=== PATIENT | female | born 1955 | race Caucasian/White ===

== ENCOUNTER 2017-05-26 11:00 | Outpatient (RCR) | payer OTHER ==
[2017-03-29 11:39] VITALS: BP 105/56; PULSE 78; TEMP 97.8
[2017-03-30 11:19] VITALS: BP 105/49; PULSE 74; TEMP 98.1
[2017-03-31 10:08] VITALS: BP 121/49; PULSE 88; TEMP 98
[2017-04-03 11:29] VITALS: BP 96/44; PULSE 123; TEMP 97.4
[2017-04-10 10:59] VITALS: BP 125/79; PULSE 120; TEMP 97.7
[2017-04-17 11:09] VITALS: BP 104/75; PULSE 122; TEMP 97.7
[2017-04-21 10:42] VITALS: BP 117/93; PULSE 94; TEMP 97.6
[2017-04-21 10:57] LABS: ADD PATHOLOGY DIFF REVIEW NO
[2017-04-21 11:02] LABS: HEMATOCRIT 30.8 % (37.0-47.0); HEMOGLOBIN 10.2 g/dl (12.5-16.0); MEAN CELL VOLUME 91 fl (80.0-100.0); MEAN CORPUSCULAR HEMOGLOBIN 30 pg (27.0-31.0); MEAN CORPUSCULAR HGB CONC 33 g/dl (33.0-37.0); MEAN PLATELET VOLUME 10.7 fl (7.4-10.4); PLATELET COUNT 146 K/mm3 (130-400); RED BLOOD COUNT 3.38 M/mm3 (4.10-5.30); REDCELL DISTRIBUTION WIDTH-CV 12.6 % (11.5-14.5)
[2017-04-21 11:11] LABS: ADJUSTED CALCIUM 9.3 mg/dL (8.4-10.2); ALBUMIN 3.6 gm/dL (3.5-5.0); BILIRUBIN,TOTAL 0.3 mg/dL (0.0-1.0); CREATININE, serum 0.45 mg/dL (0.52-1.25); POTASSIUM 3.8 mmol/L (3.4-5.0); TOTAL PROTEIN 6.5 gm/dL (6.4-8.2)
[2017-04-21 12:06] LABS: BAND 9 % (0-10); EOSINOPHIL 1 % (0-4); METAMYELOCYTE 2 % (0-0); NEUTROPHILS 61 % (42.0-75.2); TOTAL CELLS COUNTED 100
[2017-04-21 12:07] LABS: PLATELET ESTIMATE NORMAL (NORMAL)
[2017-04-28 11:09] VITALS: BP 108/54; PULSE 101; TEMP 97.8
[2017-04-28 11:59] LABS: ADD PATHOLOGY DIFF REVIEW NO
[2017-04-28 12:02] LABS: MEAN CELL VOLUME 93 fl (80.0-100.0); MEAN CORPUSCULAR HGB CONC 33 g/dl (33.0-37.0); MEAN PLATELET VOLUME 9.5 fl (7.4-10.4); PLATELET COUNT 167 K/mm3 (130-400); RED BLOOD COUNT 3.56 M/mm3 (4.10-5.30); REDCELL DISTRIBUTION WIDTH-CV 13.2 % (11.5-14.5); WHITE BLOOD COUNT 9.8 K/mm3 (4.8-10.8)
[2017-04-28 12:03] LABS: HEMATOCRIT 33.1 % (37.0-47.0); HEMOGLOBIN 10.8 g/dl (12.5-16.0); MEAN CORPUSCULAR HEMOGLOBIN 30 pg (27.0-31.0)
[2017-04-28 12:21] LABS: ADJUSTED CALCIUM 9.3 mg/dL (8.4-10.2); ALBUMIN 3.7 gm/dL (3.5-5.0); BILIRUBIN,TOTAL 0.2 mg/dL (0.0-1.0); CALCIUM 9.1 mg/dL (8.4-10.2); CREATININE, serum 0.51 mg/dL (0.52-1.25); POTASSIUM 3.8 mmol/L (3.4-5.0); TOTAL PROTEIN 6.6 gm/dL (6.4-8.2)
[2017-04-28 13:42] LABS: BAND 23 % (0-10); BASOPHIL 1 % (0-2); NEUTROPHILS 55 % (42.0-75.2); PLATELET ESTIMATE NORMAL (NORMAL); TOTAL CELLS COUNTED 100
[2017-04-28 13:43] LABS: OVALOCYTES 1+
[2017-05-05 11:28] LABS: ADD PATHOLOGY DIFF REVIEW NO
[2017-05-05 11:36] LABS: MEAN CELL VOLUME 94 fl (80.0-100.0); MEAN CORPUSCULAR HGB CONC 32 g/dl (33.0-37.0); PLATELET COUNT 535 K/mm3 (130-400); RED BLOOD COUNT 3.05 M/mm3 (4.10-5.30); REDCELL DISTRIBUTION WIDTH-CV 14.6 % (11.5-14.5); WHITE BLOOD COUNT 5.9 K/mm3 (4.8-10.8)
[2017-05-05 11:37] LABS: HEMATOCRIT 28.6 % (37.0-47.0); HEMOGLOBIN 9.2 g/dl (12.5-16.0); MEAN CORPUSCULAR HEMOGLOBIN 30 pg (27.0-31.0)
[2017-05-05 11:50] LABS: BAND 3 % (0-10); NEUTROPHILS 61 % (42.0-75.2); PLATELET ESTIMATE INCREASED (NORMAL); TOTAL CELLS COUNTED 100
[2017-05-05 12:04] VITALS: BP 103/40; PULSE 20; TEMP 97.9
[2017-05-12 11:05] LABS: MEAN CELL VOLUME 93 fl (80.0-100.0); MEAN CORPUSCULAR HGB CONC 33 g/dl (33.0-37.0); MEAN PLATELET VOLUME 10.1 fl (7.4-10.4); PLATELET COUNT 331 K/mm3 (130-400); RED BLOOD COUNT 2.84 M/mm3 (4.10-5.30); REDCELL DISTRIBUTION WIDTH-CV 14.2 % (11.5-14.5)
[2017-05-12 11:08] LABS: HEMATOCRIT 26.5 % (37.0-47.0); HEMOGLOBIN 8.7 g/dl (12.5-16.0); MEAN CORPUSCULAR HEMOGLOBIN 31 pg (27.0-31.0); WHITE BLOOD COUNT 20.2 K/mm3 (4.8-10.8)
[2017-05-12 11:09] VITALS: BP 107/40; PULSE 93; TEMP 98.1
[2017-05-12 11:44] LABS: BAND 64 % (0-10); METAMYELOCYTE 1 % (0-0); MYELOCYTE 1 % (0-0); NEUTROPHILS 24 % (42.0-75.2); POLYCHROMASIA 1+; TOTAL CELLS COUNTED 100
[2017-05-12 11:54] LABS: PLATELET ESTIMATE NORMAL (NORMAL); TOXIC GRANULATION PRESENT
[2017-05-12 11:55] LABS: ADD PATHOLOGY DIFF REVIEW YES
[2017-05-15 09:01] LABS: PATHOLOGY DIFF REVIEW OK
[2017-05-19 11:07] LABS: ADD PATHOLOGY DIFF REVIEW NO
[2017-05-19 11:13] VITALS: BP 97/52; PULSE 100; TEMP 98
[2017-05-19 11:14] LABS: HEMATOCRIT 33.3 % (37.0-47.0); HEMOGLOBIN 10.7 g/dl (12.5-16.0); MEAN CELL VOLUME 97 fl (80.0-100.0); MEAN CORPUSCULAR HEMOGLOBIN 31 pg (27.0-31.0); MEAN CORPUSCULAR HGB CONC 32 g/dl (33.0-37.0); MEAN PLATELET VOLUME 9.6 fl (7.4-10.4); PLATELET COUNT 242 K/mm3 (130-400); RED BLOOD COUNT 3.45 M/mm3 (4.10-5.30); REDCELL DISTRIBUTION WIDTH-CV 16.8 % (11.5-14.5)
[2017-05-19 11:24] LABS: ADJUSTED CALCIUM 9.3 mg/dL (8.4-10.2); BILIRUBIN,TOTAL 0.3 mg/dL (0.0-1.0); CALCIUM 9.3 mg/dL (8.4-10.2); CREATININE, serum 0.58 mg/dL (0.52-1.25); POTASSIUM 4.3 mmol/L (3.4-5.0); TOTAL PROTEIN 6.7 gm/dL (6.4-8.2)
[2017-05-19 11:48] LABS: BAND 22 % (0-10); MYELOCYTE 3 % (0-0); NEUTROPHILS 54 % (42.0-75.2); TOTAL CELLS COUNTED 100
[2017-05-19 11:49] LABS: ANISOCYTOSIS 1+; OVALOCYTES 1+; PLATELET ESTIMATE NORMAL (NORMAL)
[~2017-05-26] VITALS: Ht 172.7 cm; Wt 46.8 kg
[~2017-05-26 11:00] MED LIST: ATIVAN 0.50.5 MG/TAB PO; FLEXERIL 1010 MG/TAB PO; NORCO 325 MG-51 TAB PO; PEPCID 20MG TAB20 MG PO
[2017-05-26 11:11] VITALS: BP 109/60; PULSE 83; TEMP 97.7
[2017-06-16] MEDS ORDERED: DAZIDOX10 MG PO (15:42)
[2017-06-30] MEDS ORDERED: NEURONTIN100 MG/CAP PO (10:56)
[2017-06-30] MEDS ORDERED: MARINOL 2.5MG2.5 MG PO (10:57)
[2017-06-30] MEDS ORDERED: STIOLTO RESPIMAT4 GM IH (10:58)
[2017-06-30] MEDS ORDERED: COMPAZINE 110 MG/TAB PO (10:59)
== END 2017-05-26 11:41 | disposition home or self-care (01) ==
LOC: EUO 11:00
PROVIDERS: Internal Medicine Medical Oncology
DX: C34.31 Malignant neoplasm of lower lobe, right bronchus or lung (principal); C79.51 Secondary malignant neoplasm of bone; C78.02 Secondary malignant neoplasm of left lung; C79.72 Secondary malignant neoplasm of left adrenal gland; C79.71 Secondary malignant neoplasm of right adrenal gland; E86.0 Dehydration; Z87.81 Personal history of (healed) traumatic fracture; Z90.49 Acquired absence of other specified parts of digestive tract; Z80.8 Family history of malignant neoplasm of other organs or systems
CPT/HCPCS: C1751; C1894; J1644; J7030

== ENCOUNTER 2017-09-08 11:00 | Outpatient (RCR) | payer OTHER ==
[2017-06-16 15:43] VITALS: BP 108/44; PULSE 60; TEMP 97.4
[2017-06-23 10:45] VITALS: BP 103/47; PULSE 77; TEMP 97.6
[2017-06-30 10:50] VITALS: BP 103/44; PULSE 94; TEMP 98
[2017-06-30 11:06] LABS: MEAN CELL VOLUME 97 fl (80.0-100.0); MEAN CORPUSCULAR HGB CONC 33 g/dl (33.0-37.0); MEAN PLATELET VOLUME 10.8 fl (7.4-10.4); PLATELET COUNT 83 K/mm3 (130-400); RED BLOOD COUNT 2.92 M/mm3 (4.10-5.30); WHITE BLOOD COUNT 3.4 K/mm3 (4.8-10.8)
[2017-06-30 11:12] LABS: ADD PATHOLOGY DIFF REVIEW NO; HEMATOCRIT 28.2 % (37.0-47.0); HEMOGLOBIN 9.2 g/dl (12.5-16.0); MEAN CORPUSCULAR HEMOGLOBIN 32 pg (27.0-31.0)
[2017-06-30 12:01] LABS: BAND 31 % (0-10); EOSINOPHIL 2 % (0-4); LYMPHOCYTE 14 % (20.0-51.0); NEUTROPHILS 44 % (42.0-75.2); TOTAL CELLS COUNTED 100
[2017-06-30 12:02] LABS: ANISOCYTOSIS 1+; HYPOCHROMIA 1+; PLATELET ESTIMATE DECREASED (NORMAL)
[2017-07-07 10:58] VITALS: BP 109/50; PULSE 78; TEMP 98.2
[2017-07-21 10:51] VITALS: BP 108/50; PULSE 99; TEMP 97.5
[2017-07-28 10:54] VITALS: BP 101/42; PULSE 91; TEMP 97.7
[2017-08-07 11:12] VITALS: BP 115/48; PULSE 113; TEMP 97.5
[2017-08-11 11:31] VITALS: BP 115/86; PULSE 90; TEMP 97.9
[2017-08-18 11:00] VITALS: BP 104/55; PULSE 83; TEMP 97.7
[2017-08-28 11:04] VITALS: BP 104/56; PULSE 113; TEMP 98.1
[2017-09-01 11:22] VITALS: BP 107/58; PULSE 79; TEMP 97.4
[~2017-09-08] VITALS: Ht 172.7 cm; Wt 44.2 kg
[~2017-09-08 11:00] MED LIST changes: +COMPAZINE 110 MG/TAB PO; +DAZIDOX10 MG PO; +MARINOL 2.5MG2.5 MG PO; +NEURONTIN100 MG/CAP PO; +STIOLTO RESPIMAT4 GM IH
== END 2017-09-14 ==
LOC: EUO
DX: C34.31 Malignant neoplasm of lower lobe, right bronchus or lung (principal)
CPT/HCPCS: J1644

== ENCOUNTER 2017-10-06 11:00 | Outpatient (RCR) | payer OTHER ==
[2017-09-15 11:41] VITALS: BP 92/56; PULSE 103; TEMP 98.4
[2017-09-22 11:19] VITALS: BP 99/39; PULSE 72; TEMP 97.9
[2017-09-29 11:04] VITALS: BP 131/62; PULSE 96; TEMP 97.2
[~2017-10-06] VITALS: Ht 172.7 cm; Wt 44.0 kg
[2017-10-06 11:12] VITALS: BP 131/62; PULSE 96; TEMP 97.2
[2017-10-13 11:03] VITALS: BP 114/46; PULSE 88
== END 2017-10-13 10:59 | disposition home or self-care (01) ==
LOC: EUO 11:00
DX: C34.90 Malignant neoplasm of unspecified part of unspecified bronchus or lung (principal)
CPT/HCPCS: J1644

== ENCOUNTER 2018-02-21 16:13 | Emergency (ER) | payer OTHER ==
[~2018-02-21] VITALS: Ht 172.7 cm; Wt 40.5 kg
[2018-02-21 16:54] VITALS: TEMP 96.9
[2018-02-21 17:02] LABS: BASO % 0.3 % (0.0-2.0); EOS # 0.1 (0.0-0.7); EOS % 0.7 % (0-4.0); GRAN # 4.9 (1.4-6.5); GRAN % 71.2 % (42.2-75.2); HEMATOCRIT 40.8 % (37.0-47.0); HEMOGLOBIN 13.6 g/dl (12.5-16.0); LYMPH # 1.1 (1.2-3.4); LYMPH % 15.7 % (20.0-51.0); MEAN CELL VOLUME 95 fl (80.0-100.0); MEAN CORPUSCULAR HEMOGLOBIN 32 pg (27.0-31.0); MEAN CORPUSCULAR HGB CONC 33 g/dl (33.0-37.0); MEAN PLATELET VOLUME 8.8 fl (7.4-10.4); MONO # 0.8 (0.1-0.6); PLATELET COUNT 223 K/mm3 (130-400); RED BLOOD COUNT 4.31 M/mm3 (4.10-5.30); REDCELL DISTRIBUTION WIDTH-CV 15.3 % (11.5-14.5)
[2018-02-21 17:18] LABS: BILIRUBIN,TOTAL 0.5 mg/dL (0.0-1.0); CALCIUM 8.6 mg/dL (8.4-10.2); CREATININE, serum 0.69 mg/dL (0.52-1.25); POTASSIUM 3.6 mmol/L (3.4-5.0); TOTAL PROTEIN 7.4 gm/dL (6.4-8.2)
[2018-02-21 17:18] LABS: ARTERIAL BLD GAS O2 SATURATION 96.5 % (92-100); ARTERIAL BLD GAS TCO2 CT 22.3; ARTERIAL BLOOD GAS BASE EXCESS -0.9 (-2-2); ARTERIAL BLOOD GAS HCO3 21.4 meq/L (22-26); ARTERIAL BLOOD GAS PO2 85.5 mmHg (80-100); ARTERIAL BLOOD GAS pH 7.49 (7.35-7.45)
[2018-02-21 18:31] VITALS: BP 121/61; PULSE 79
== END 2018-02-21 18:14 | disposition home or self-care (01) ==
LOC: COL.ER 16:13
PROVIDERS: Family Medicine
DX: E86.0 Dehydration (principal); F17.210 Nicotine dependence, cigarettes, uncomplicated; Z85.118 Personal history of other malignant neoplasm of bronchus and lung; Z85.841 Personal history of malignant neoplasm of brain
CPT/HCPCS: J7030

== ENCOUNTER → 2018-04-06 | Outpatient (CLI) | payer OTHER ==
[2018-04-06 14:24] LABS: BASO % 0.3 % (0.0-2.0); EOS % 0.2 % (0-4.0); GRAN # 9.6 (1.4-6.5); GRAN % 80.9 % (42.2-75.2); HEMOGLOBIN 10.8 g/dl (12.5-16.0); LYMPH # 0.7 (1.2-3.4); LYMPH % 5.7 % (20.0-51.0); MEAN CELL VOLUME 92 fl (80.0-100.0); MEAN CORPUSCULAR HEMOGLOBIN 31 pg (27.0-31.0); MEAN CORPUSCULAR HGB CONC 33 g/dl (33.0-37.0); MEAN PLATELET VOLUME 9.4 fl (7.4-10.4); MONO # 1.5 (0.1-0.6); MONO % 12.5 % (1.7-9.3); PLATELET COUNT 277 K/mm3 (130-400); RED BLOOD COUNT 3.54 M/mm3 (4.10-5.30); REDCELL DISTRIBUTION WIDTH-CV 14.1 % (11.5-14.5)
[2018-04-06 14:25] LABS: HEMATOCRIT 32.5 % (37.0-47.0)
[2018-04-06 14:32] LABS: ALBUMIN 3.3 gm/dL (3.5-5.0); BILIRUBIN,TOTAL 0.4 mg/dL (0.0-1.0); CALCIUM 8.2 mg/dL (8.4-10.2); CREATININE, serum 0.46 mg/dL (0.52-1.25); POTASSIUM 3.2 mmol/L (3.4-5.0); TOTAL PROTEIN 6.8 gm/dL (6.4-8.2)
== END ==
LOC: COL.LAB 13:14
PROVIDERS: Internal Medicine Infectious Disease
DX: J98.4 Other disorders of lung (principal); A31.0 Pulmonary mycobacterial infection; J18.9 Pneumonia, unspecified organism

== ENCOUNTER 2018-09-25 20:03 | Emergency (ER) | payer SELFPAY ==
[~2018-09-25] VITALS: Ht 172.7 cm; Wt 44.1 kg
[2018-09-25 20:08] VITALS: TEMP 98
[2018-09-25 20:36] LABS: BASO # 0.1 (0.0-0.2); BASO % 0.7 % (0.0-2.0); EOS # 0.1 (0.0-0.7); GRAN # 5.1 (1.4-6.5); GRAN % 73.3 % (42.2-75.2); LYMPH % 14.1 % (20.0-51.0); MEAN CELL VOLUME 87 fl (80.0-100.0); MEAN CORPUSCULAR HGB CONC 32 g/dl (33.0-37.0); MEAN PLATELET VOLUME 9.3 fl (7.4-10.4); MONO # 0.7 (0.1-0.6); MONO % 10.6 % (1.7-9.3); PLATELET COUNT 332 K/mm3 (130-400); RED BLOOD COUNT 3.45 M/mm3 (4.10-5.30); REDCELL DISTRIBUTION WIDTH-CV 15.5 % (11.5-14.5)
[2018-09-25 20:39] LABS: HEMOGLOBIN 9.7 g/dl (12.5-16.0); MEAN CORPUSCULAR HEMOGLOBIN 28 pg (27.0-31.0)
[2018-09-25 20:53] LABS: ALBUMIN 3.2 gm/dL (3.5-5.0); BILIRUBIN,TOTAL 0.2 mg/dL (0.0-1.0); C-REACTIVE PROTEIN 1.2 mg/dL (0.0-0.9); CALCIUM 8.8 mg/dL (8.4-10.2); CREATININE, serum 0.63 mg/dL (0.52-1.25); POTASSIUM 3.7 mmol/L (3.4-5.0); TOTAL PROTEIN 6.5 gm/dL (6.4-8.2); URIC ACID 2.8 mg/dL (2.5-6.2)
[2018-09-25 21:14] LABS: ERYTHROCYTE SEDIMENTATION RATE 73 mm/hr (0-30)
[2018-09-25] MEDS ORDERED: MOTRIN 600600 MG/TAB PO (21:34)
[2018-09-25] MEDS ORDERED: DOXYCYCLINE 10100 MG PO (21:34)
[2018-09-25 21:48] VITALS: BP 110/60; PULSE 91
== END 2018-09-25 21:51 | disposition home or self-care (01) ==
LOC: COL.ER 20:03
PROVIDERS: Emergency Medicine
DX: M25.531 Pain in right wrist (principal); L03.90 Cellulitis, unspecified; F17.210 Nicotine dependence, cigarettes, uncomplicated; Z85.118 Personal history of other malignant neoplasm of bronchus and lung

== ENCOUNTER 2020-03-22 00:57 | Inpatient (IN) | payer MEDICAID ==
[~2020-03-22] VITALS: Ht 167.6 cm; Wt 38.0 kg
[2020-03-22] VITALS (64 sets, daily range): BP systolic 84–108; BP diastolic 39–51; PULSE 82–92; TEMP 98.2–98.6; O2SAT 89–96
[~2020-03-22 00:57] MED LIST changes: +CLEOCIN HCL300 MG PO; +DOXYCYCLINE 10100 MG PO; +LASIX 20MG TABL20 MG PO; +MOTRIN 600600 MG/TAB PO; +NEURONTIN600 MG/TAB PO; +PROAIR HFA0.09 MG/AC IH
[2020-03-22 01:40] LABS: BASO % 0.6 % (0.0-2.0); EOS % 0.1 % (0-4.0); GRAN # 5.5 (1.4-6.5); GRAN % 75.2 % (42.2-75.2); LYMPH % 13.1 % (20.0-51.0); MEAN CELL VOLUME 75 fl (80.0-100.0); MEAN CORPUSCULAR HGB CONC 31 g/dl (33.0-37.0); MEAN PLATELET VOLUME 8.9 fl (7.4-10.4); MONO # 0.8 (0.1-0.6); MONO % 10.6 % (1.7-9.3); PLATELET COUNT 317 K/mm3 (130-400); RED BLOOD COUNT 3.62 M/mm3 (4.10-5.30)
[2020-03-22 01:44] LABS: HEMOGLOBIN 8.3 g/dl (12.5-16.0); MEAN CORPUSCULAR HEMOGLOBIN 23 pg (27.0-31.0)
[2020-03-22 01:55] LABS: ALANINE AMINOTRANSFERASE 17 U/L (4-34); ALBUMIN 2.7 gm/dL (3.5-5.0); ALKALINE PHOSPHATASE 139 U/L (50-136); ANION GAP 7 mmol/L (7-16); AST,SGOT 31 U/L (15-37); BILIRUBIN,TOTAL 0.4 mg/dL (0.0-1.0); BLOOD UREA NITROGEN 8 mg/dL (7-17); CALCIUM 8.1 mg/dL (8.4-10.2); CARBON DIOXIDE 31 mmol/L (22-30); CHLORIDE 91 mmol/L (98-107); CREATININE, serum 0.42 (0.52-1.25); GLUCOSE 101 mg/dL (74-106); MAGNESIUM 1.5 mg/dL (1.6-2.3); PHOSPHOROUS 3.3 mg/dL (2.5-4.5); POTASSIUM 3.4 mmol/L (3.4-5.0); SODIUM 129 mmol/L (137-145); TOTAL PROTEIN 6.7 gm/dL (6.4-8.2)
[2020-03-22 01:58] LABS: ACETAMINOPHEN < 10 ug/mL (10-30); ALCOHOL(ethanol),MEDICAL < 10 mg/dL; SALICYLATE < 1.0 mg/dL
[2020-03-22 02:02] LABS: COLLECTION METHOD CATHETER
[2020-03-22 02:08] LABS: PH 6 (5-8); SQUAMOUS EPITHELIAL 0-2 /hpf; URINE APPEARANCE Clear; URINE BACTERIA None Seen /hpf; URINE BILIRUBIN Negative (NEGATIVE); URINE BLOOD Negative (NEGATIVE); URINE COLOR Yellow; URINE GLUCOSE Negative (NEGATIVE); URINE KETONE Negative (NEGATIVE); URINE LEUKOCYTE ESTERASE Negative (NEGATIVE); URINE NITRATE Negative (NEGATIVE); URINE PROTEIN(semi-quant) Negative (NEGATIVE); URINE RBC 0-2 /hpf
[2020-03-22 02:30] LABS: TRICYCLIC ANTIDEPRESS URINE NEGATIVE
[2020-03-22 02:42] LABS: INR 1.2 (0.8-3.0); PROTHROMBIN TIME 13.7 SECONDS (9.7-12.8)
[2020-03-22 02:44] LABS: PARTIAL THROMBOPLASTIN TIME 24.6 SECONDS (26.0-37.0)
[2020-03-22 03:00] LABS: TROPONIN-I 0.012 ng/mL (0.000-0.035)
[2020-03-22 04:01] LABS: ARTERIAL BLD GAS O2 SATURATION 93.5 % (92-100); ARTERIAL BLD GAS TCO2 CT 31.6; ARTERIAL BLOOD GAS BASE EXCESS 5.9 (-2-2); ARTERIAL BLOOD GAS HCO3 30.2 meq/L (22-26); ARTERIAL BLOOD GAS PCO2 43.3 mmHg (35-45); ARTERIAL BLOOD GAS PO2 74.1 mmHg (80-100); ARTERIAL BLOOD GAS pH 7.46 (7.35-7.45)
--- NOTE | 2020-03-22 05:00 | NUR ---
Pt report received by Samanta COKER from ED.
--- NOTE | 2020-03-22 05:10 | NUR ---
Pt arrived via stretcher X1 staff assist from ED into ICU 08. Pt was assisted with transfer from stretcher to bed X2 staff assistance. Pt repeatedly yelled to staff members in a clear voice "I hate you." "I am so cold." With assistance repositioning pt and placing a gown on pt was making movements consistent with bitting staff members as well as swinging arms, and pinching. Once pt was left alone pt layed still in bed. Warm blanket was applied, feet cleaned for further assessment as well as yellow socks placed per fall protocol.
--- NOTE | 2020-03-22 07:15 | NUR ---
Report received from Tamy COKER and care resumed.
--- NOTE | 2020-03-22 07:19 | NUR ---
Pt unable to answer questions appropriately at this time. Per report and H&P daughter unable to answer what medications pt takes. Admission B history completed per ED report as well as H&P.
--- NOTE | 2020-03-22 07:32 | NUR ---
PT COMBATIVE UNABLE TO DO TREATMENT
--- NOTE | 2020-03-22 16:10 | NUR ---
Pt has monitors pulled off and refusing at this time.
--- NOTE | 2020-03-22 19:10 | NUR ---
RECEIVED REPORT FROM JOHN PAUL THOMPSON. BEDALARM SET. FC PATENT AND DRAINING TO GRAVITY. PT ATTEMPTS TO CRAWL OUT OF BED BUT MOVES SLOWLY AND YELLS OUT AT NURSE AND KEEPS SAYING "NO!" LELAND PASCUAL NOTIFIED. AWAITING FOR CALL BACK.
--- NOTE | 2020-03-22 19:31 | NUR ---
Report given to Param COKER and care transfered.
--- NOTE | 2020-03-22 19:49 | NUR ---
SPOKE TO LELAND PASCUAL ABOUT PT CALLING OUT AND HAVING A HARD TIME SETTLING. NEW ORDERS RECEIVED. SEE MAR.
--- NOTE | 2020-03-22 20:00 | NUR ---
PT ABLE TO ANSWER ORIENTATION QUESTIONS CORRECTLY AT THIS TIME AFTER BEING ASKED THE QUESTION A COUPLE TIMES. PT DOES YELL OUT AT NURSE BUT ULTIMATELY DOES FOLLOW SIMPLE COMMANDS TO GET BACK INTO BED. PT YELLS AT NURSE OCCASSIONALLY CUSS WORDS AND SAYS "I AM GOING TO SLAP YOU," BUT NURSE IS ABLE TO HELP PT CALM DOWN AND PROVIDE PT WITH HOT TEA TO HELP WARM HER UP. HR STABLE. PT LETS NURSE OBTAIN TEMP AND BP AT THIS TIME. TV TURNED ON FOR PT. FC PATENT AND DRAINING TO GRAVITY.
[2020-03-23] VITALS (10 sets, daily range): BP systolic 92–111; BP diastolic 41–55; PULSE 82–96; TEMP 97.6–98.9; O2SAT 93–95
[2020-03-23 05:10] LABS: BASO % 0.2 % (0.0-2.0); EOS # 0.1 (0.0-0.7); EOS % 2.2 % (0-4.0); GRAN # 2.7 (1.4-6.5); GRAN % 60.1 % (42.2-75.2); HEMATOCRIT 25.2 % (37.0-47.0); HEMOGLOBIN 7.8 g/dl (12.5-16.0); LYMPH % 23.1 % (20.0-51.0); MEAN CELL VOLUME 76 fl (80.0-100.0); MEAN CORPUSCULAR HEMOGLOBIN 24 pg (27.0-31.0); MEAN CORPUSCULAR HGB CONC 31 g/dl (33.0-37.0); MEAN PLATELET VOLUME 9.7 fl (7.4-10.4); MONO # 0.6 (0.1-0.6); PLATELET COUNT 289 K/mm3 (130-400); REDCELL DISTRIBUTION WIDTH-CV 18.5 % (11.5-14.5)
[2020-03-23 05:19] LABS: ALBUMIN 2.3 gm/dL (3.5-5.0); BILIRUBIN,TOTAL 0.5 mg/dL (0.0-1.0); CALCIUM 7.8 mg/dL (8.4-10.2); CREATININE, serum 0.41 (0.52-1.25); MAGNESIUM 1.8 mg/dL (1.6-2.3); POTASSIUM 3.5 mmol/L (3.4-5.0); TOTAL PROTEIN 5.9 gm/dL (6.4-8.2)
--- NOTE | 2020-03-23 07:15 | NUR ---
up in chair having clear liquid breakfast, bedside shift report received from JOHN PAUL Costa, vascular research lab assistant in to complete echo
--- NOTE | 2020-03-23 08:30 | NUR ---
remains up in chair but is asking to go back to bed, full assessment completed, see interventions for further info, then assisted back into bed, provided warm blankets and hot tea per her request, is pleasant and cooperative this am, denies pain or further needs
--- NOTE | 2020-03-23 09:35 | NUR ---
assisted up to bathroom and attempted to have bowel movement but unsuccessful, assisted back to bed, has red scabbed area to mid back, mepiplex placed, after returning to bed she c\o pain to mid back and explained to her why, verbalizes understanding
--- NOTE | 2020-03-23 10:05 | NUR ---
daughter in to visit, Dr Mcbride in to visit with daughter and patient
--- NOTE | 2020-03-23 10:30 | NUR ---
daughter remains at bedside, will go for CT of chest, INT started and patient cooperative and tolerated well
--- NOTE | 2020-03-23 10:35 | NUR ---
to radiology for CT scan of chest
--- NOTE | 2020-03-23 11:00 | NUR ---
returned from radiology per , palliative care nurse and social scientist now talking with patient, new INT started while in CT in right antecubital
--- NOTE | 2020-03-23 11:21 | NUR ---
bedside shift report given to JOHN PAUL White
--- NOTE | 2020-03-23 11:25 | NUR ---
Report received from JOHN PAUL Browne. Will resume care.
--- NOTE | 2020-03-23 11:36 | NUR ---
Met with Daughter Ashley and then with both pt and Ashley along with director social service, Sosa GALLEGO for palliative care discussion. Daughter reports that her mother wants to stay in her own home and so she is interested in looking at services who could help support her in this situation. Initially pt wanted to do home health to get stronger and better, but as we talked and her daughter began to talk in more detail about her situation, pt asked what the difference was again and then agreed that hospice services would be good for her. Daughter is also interested in getting meals on wheels set up for both Aga (aunt) and Jumana which pt did agree to. Will look at additional in home care services and does realize that these would be private pay if needed. Also discussed concern over pt driving and will make available transportation # for assistance from medicaid. [facility] was selected by daughter and Sosa will contact them and meals on wheels. I will follow along as needed for support.
--- NOTE | 2020-03-23 13:56 | NUR ---
Pt escorted up to medical floor via w/c with daughter Ashley and all belongings. Pt in to bathroom immediately per request. Did show some signs of confusion and difficulty verbalizing and comprehending needs. Bedside shift report given to JOHN PAUL Curtis who will resume care.Pt placed in bed with call light, alarms on, and warm blanket, medical nurse to resume care.
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
--- NOTE | 2020-03-23 19:39 | NUR ---
Up to restroom and returned to bed. Assessment complete. Left lung elliott crackles. Right lung elliott clear. Heart sounds normal. Bowels active x4. Pulses strong throughout. Bilateral lower leg edema +2. Patient has midlower back abrasion-nuno sized, right buttock and coccyx present. Laying on left side when returned to bed. No IV access at this time. Denies pain. Denies needs. Call light in reach.
--- NOTE | 2020-03-23 23:16 | NUR ---
Reports inability to sleep and discomfort. Provided with PRN ativan. Denies other needs. Call light in reach.
--- NOTE | 2020-03-23 23:52 | NUR ---
Patient has frequent urination with small output. Bladder scanner reading >200. Urinated and post residual 177. Hospitalist notified. UA and rescan with next void.
--- NOTE | 2020-03-24 00:33 | NUR ---
UA collected. Pre amount 228 post 161.
[2020-03-24 00:39] LABS: COLLECTION METHOD CATHETER
[2020-03-24 00:49] LABS: MUCOUS Present /lpf; PH 9 (5-8); SQUAMOUS EPITHELIAL 0-2 /hpf; URINE APPEARANCE Clear; URINE BACTERIA None Seen /hpf; URINE BILIRUBIN Negative (NEGATIVE); URINE BLOOD Negative (NEGATIVE); URINE COLOR Yellow; URINE GLUCOSE Negative (NEGATIVE); URINE KETONE Negative (NEGATIVE); URINE LEUKOCYTE ESTERASE Negative (NEGATIVE); URINE NITRATE Negative (NEGATIVE); URINE PROTEIN(semi-quant) Negative (NEGATIVE); URINE RBC 0-2 /hpf
--- NOTE | 2020-03-24 00:50 | NUR ---
Patient reports back discomfort at this time. 03/25 currently. Provided with PRN kamini.
--- NOTE | 2020-03-24 03:40 | NUR ---
Patient restless at this time. Reports inability to relax. Provided with PRN ativan at this time.
[2020-03-24 03:46] VITALS: BP 115/58; PULSE 92; TEMP 98.1
--- NOTE | 2020-03-24 06:06 | NUR ---
Patient was up to restroom several times during night x1 assist. Bladder scanned with max 228 found. Hospialist aware. Provided patient with 2 doses of ativan for restlessness and 1 dose of norco for reported discomfort while resting. Otherwise uneventful night. Resting in bed this AM. Call light in reach.
--- NOTE | 2020-03-24 07:07 | NUR ---
Report given to JOHN PAUL Curtis
[2020-03-24 07:42] VITALS: BP 100/45; PULSE 87; TEMP 98.3
[2020-03-24] MEDS ORDERED: ZOFRAN 4MG T4 MG/TAB PO (09:05)
[2020-03-24] MEDS ORDERED: TRANSDERM-0.5 MG/21 TD (09:05)
[2020-03-24] MEDS ORDERED: ROXANOL 20MG20 MG/ML SL (09:06)
[2020-03-24] MEDS ORDERED: ATIVAN 1MG T1 MG/TAB PO (09:06)
--- NOTE | 2020-03-24 09:15 | NUR ---
I talked chante Conrad at [facility] and with daughter Ashley Avalos by phone about pt going home with hospice. Hospice will plan on being at pt's home at 1100 today and Roel Pineda will pick pt up at 1030 to transport to her house. Again reinforced to both [facility], Conrad, and daughter, that pt should not be brought back to the hospital for care--that this was a big reason that she elected to go with hospice care. Daughter will meet with Conrad this morning to sign paperwork and will be at the house for the admission, also this morning. I talked with primary nurse, Kirsten COKER and with pediatric social worker Shelli.
--- NOTE | 2020-03-24 09:17 | NUR ---
The patient is to discharge home today, 03/24 with [facility]. SW faxed discharge orders and scripts to [facility]. The patient will be transported by private vehicle at 1100. The family and team were in agreeance. SW attempted to contact the patient's daughter, Ashley to give her information about meals on wheels in [place] and information on [facility], left message. There are no additional needs at this time.
--- NOTE | 2020-03-24 10:51 | NUR ---
PATIENT DC TO HOME WITH HOSPICE @ 1044. AT TIME OF DC AWAKE AND ALERT. ATTITUDE CALM AND PLEASANT. CONFUSED AND ONLY ORIENTED TO SELF. DENIES C/O PAIN OR DISCOMFORT. AMBULATED WITH 2:1 ASSIST. GAIT SLOW AND UNSTEADY. DC PAPER WORK WITH PRESCRIPTIONS IN SEALED [employer]OPE. CALL TO DAUGHTER/DPOA MARISELA HAAS. NOTIFIED OF DC WITH HOSPICE. DAUGHTER ACKNOWLEDGES DC AND HAS NO QUESTIONS. ENCOURAGED TO CALL WITH QUESTIONS OR CONCERNS AFTER MEETING WITH HOSPICE THIS AM @ 1100. LEFT UNIT IN WC ACCOMPANIED BY PCT. LEFT VIA POV ACCOMPANIED FAMILY FLAME BURNER.
== END 2020-03-24 10:44 | disposition hospice, home (50) | DRG 91 ==
LOC: COL.ER 00:57 → ICU 03:54 → EDBEDREQ 04:26 → MEDICAL 03-23 13:59
PROVIDERS: Emergency Medicine; Nurse Practitioner Family; ADMIT Internal Medicine
DX: G92 Toxic encephalopathy (principal); J96.01 Acute respiratory failure with hypoxia; E43 Unspecified severe protein-calorie malnutrition; J18.9 Pneumonia, unspecified organism; C79.31 Secondary malignant neoplasm of brain; C34.90 Malignant neoplasm of unspecified part of unspecified bronchus or lung; Z68.1 Body mass index [BMI] 19.9 or less, adult; E87.1 Hypo-osmolality and hyponatremia; I31.3 Pericardial effusion (noninflammatory); Z66 Do not resuscitate; Z51.5 Encounter for palliative care; J98.4 Other disorders of lung; J44.9 Chronic obstructive pulmonary disease, unspecified; I27.20 Pulmonary hypertension, unspecified; E87.6 Hypokalemia; K20.9 Esophagitis, unspecified; D50.9 Iron deficiency anemia, unspecified; F19.10 Other psychoactive substance abuse, uncomplicated; R62.7 Adult failure to thrive; T50.905A Adverse effect of unspecified drugs, medicaments and biological substances, initial encounter; E83.42 Hypomagnesemia; F32.9 Major depressive disorder, single episode, unspecified; R41.0 Disorientation, unspecified; R53.81 Other malaise; F17.210 Nicotine dependence, cigarettes, uncomplicated; Z79.891 Long term (current) use of opiate analgesic; Z88.0 Allergy status to penicillin; Z92.3 Personal history of irradiation; Z92.21 Personal history of antineoplastic chemotherapy
CPT/HCPCS: 99223-AI; 99233-AI; 99239; A4314; J0692; J1650; J3411; J3475; J3480; J7030; Q9967